=== PATIENT | female | born 2000 | race African-American/Black ===

== ENCOUNTER 2023-08-31 08:47 | Emergency (ER) | payer SELFPAY ==
[2023-08-31] MEDS ORDERED: Dexamethasone 10 MG/ML VIAL ONE (09:01)
== END 2023-08-31 09:23 | disposition home or self-care (01) ==
LOC: ERS 08:47
DX: R09.81 Nasal congestion (principal)
CPT/HCPCS: 96372; 99283; J1100

== ENCOUNTER 2023-09-24 18:08 | Emergency (ER) | payer OTHER | END 2023-09-24 18:35 | disposition left against medical advice (07) | LOC: ERS 18:08 | DX: Z53.21 Procedure and treatment not carried out due to patient leaving prior to being seen by health care provider (principal) ==

== ENCOUNTER → 2024-03-12 | Emergency (ER) | payer OTHER | LOC: ERS 07:09 | DX: M79.10 Myalgia, unspecified site (principal); I10 Essential (primary) hypertension; V89.2XXA Person injured in unspecified motor-vehicle accident, traffic, initial encounter | CPT/HCPCS: 99283 ==